=== PATIENT | female | born 1935 | race Caucasian/White ===

== ENCOUNTER 2018-05-21 07:23 | Outpatient (CLI) | payer OTHER ==
[~2018-05-21 07:23] MED LIST: ANASTROZOLE1 GM; COZAAR100 MG; NEURONTIN300 MG; SYNTHROID175 MCG
== END 2018-05-21 07:30 | disposition home or self-care (01) ==
LOC: NUCLEAR 07:23
DX: M81.0 Age-related osteoporosis without current pathological fracture (principal); R94.31 Abnormal electrocardiogram [ECG] [EKG]
CPT/HCPCS: 78452; 93017; A9500; J0153

== ENCOUNTER 2022-03-27 06:34 | Day surgery (SDC) | payer OTHER ==
[~2022-03-27] VITALS: Ht 162.6 cm; Wt 68.9 kg
[~2022-03-27 06:34] MED LIST changes: +ANASTROZOLE1 MG PO; +BIOTIN5000 MCG PO; +CRANBERRY250 M1 PO; +CRESTOR10 MG PO; +GABAPEN PO; +LEXAPR PO; +NORVASC2.5 M1 PO; +PEPCI PO; +PROTON PO; +RANEXA500 MG PO; +SYNTHROID88 MCG PO; +TOPROL XL25 M1 PO
== END 2022-03-27 21:30 | disposition home or self-care (01) ==
LOC: CIR.AMB 06:34
PROVIDERS: ATTEND Orthopaedic Surgery Hand Surgery
DX: S52.531A Colles' fracture of right radius, initial encounter for closed fracture (principal); Z20.822 Contact with and (suspected) exposure to COVID-19; Z88.2 Allergy status to sulfonamides; Z95.5 Presence of coronary angioplasty implant and graft; I10 Essential (primary) hypertension; J44.9 Chronic obstructive pulmonary disease, unspecified; E66.9 Obesity, unspecified
CPT/HCPCS: 25280; 25609; L8699